=== PATIENT | male | born 1975 | race Caucasian/White ===

== ENCOUNTER → 2017-03-06 | Day surgery (SDC) | payer OTHER ==
[~2017-03-06] VITALS: Ht 180.3 cm; Wt 102.0 kg
[~2017-03-06] MED LIST: 0.9% Sodium Chloride 1,000 ML IV SCH; FEXO180T85 PO; RABE20TA5 PO; Sodium Chloride LOK Flush 10 mL Syringe IV PRN; fentaNYL-PF 50 mCg/mL 2 mL Inj IVPUSH PRN
[2017-03-06 13:04] VITALS: BP 139/86; PULSE 56; RESP 12; O2SAT 97
[2017-03-06 14:10] VITALS: BP 133/83; PULSE 65; RESP 14; O2SAT 93
[2017-03-06 14:22] VITALS: BP 120/81; PULSE 65; RESP 16; O2SAT 95
--- NOTE | 2017-03-06 14:27 | ENDO ---
[address] [address] ENDOSCOPY PROCEDURE PATIENT: BRIANNA BARRETT : 1975 MR#: [id number] ADMIT: 03/06/2017 JOB ID: [id number] PROCEDURE: Esophagogastroduodenoscopy with biopsy. INDICATIONS: A 41-year-old male with longstanding gastroesophageal reflux reporting for Tavera's screening. EQUIPMENT: GIF H 180 J. SEDATION: Versed 7 mg and 125 mcg fentanyl. COMPLICATIONS: None identified. PROCEDURE INFORMATION: After the risks and benefits were explained, written and verbal informed consent was obtained. The patient was brought into the endoscopy suite and placed in the left lateral decubitus position. Sedation was achieved as above. The scope was introduced into the mouth through the bite block and advanced under direct visualization through the oropharynx, esophagus, stomach, and onto the second portion of the duodenum. The scope was slowly withdrawn to carefully examine the mucosa for any defects or lesions. Retroflexed views were accomplished in the stomach, the stomach was decompressed, and the scope removed the patient, who tolerated the procedure well. FINDINGS: 1. Duodenum: This was normal from the bulb through to the second portion. 2. Stomach: The patient had a small sliding hiatal hernia seen in retroflexed views. No outlet obstruction. No ulcers. No mass lesions. There was, however, an eroded polypoid structure perhaps 6 mm in greatest dimension in the antrum. This was biopsied with cold forceps for histopathologic analysis and exclusion of H. pylori infection. 3. Esophagus: The squamocolumnar junction correlated quite nicely with the top of the gastric folds. The GEJ was at about 39 cm from the incisors. The patient had one tiny focus of residual esophagitis and no evidence of any Tavera's. The remainder of the esophagus was unremarkable. ENDOSCOPIC DIAGNOSES: 1. Small sliding hiatal hernia. 2. LA grade A erosive esophagitis. 3. Eroded antral polyp. RECOMMENDATIONS: 1. Await histopathology. 2. Continue anti-reflux regimen. 3. Surveillance endoscopy is not anticipated unless otherwise called for following histopathologic review.
--- NOTE | 2017-03-14 15:19 | PATH ---
SURGICAL PATHOLOGY Attending Physician:Miguel Johnson CASE STATUS: Signed Out PATIENT NAME: BRIANNA BARRETT PID: [id number] : 1975 DATE COLLECTED:03/06/2017 00:00 SPECIMEN: Stomach, Antrum, Biopsy CLINICAL HISTORY: GERD 1). ANTRUM POLYP RULE OUT H PYLORI FINAL DIAGNOSIS: Stomach, Antrum Polyp, Biopsy: Gastric hyperplastic polyp. Negative for Helicobacter by immunohistochemistry. Negative for intestinal metaplasia. Negative for dysplasia and malignancy. ICD10: R10.9 GROSS DESCRIPTION: The specimen is received in one formalin filled container labeled with the patient's name, sublabeled "antrum polyp" and consists of 2 portions of tissue which aggregate to 0.3 x 0.2 x 0.2 CM. The specimen is entirely submitted in one cassette. 03/07/2017DC MICRO DESCRIPTION: An immunohistochemical stain was performed to evaluate for Helicobacter organisms and is negative. A control stain showed appropriate reactivity. * This test was developed and its performance characteristics determined by [employer]. It has not been cleared or approved by the U.S. Food and Drug Administration. The FDA has determined that such clearance or approval is not necessary. This test is used for clinical purposes. It should not be regarded as investigational or for research. ICD-9 CODES: CPT CODES: 1: 31910, 54762 Electronically Signed Out Nayely Yap MD [facility]ology [facility] [address], [place] [address] Technical component performed at [facility], [address], [place], [address]
== END | disposition home or self-care (01) ==
LOC: END 00:20
PROVIDERS: ATTEND Internal Medicine Gastroenterology
DX: K21.9 Gastro-esophageal reflux disease without esophagitis (principal); K44.9 Diaphragmatic hernia without obstruction or gangrene; K20.8 Other esophagitis; K31.7 Polyp of stomach and duodenum
CPT/HCPCS: 43239; 88305; 88342; G0500; J2250; J3010; J7030